=== PATIENT | female | born 1940 | race African-American/Black ===

== ENCOUNTER 2017-05-11 12:47 | Emergency (ER) | payer MEDICARE, OTHER ==
[~2017-05-11] VITALS: Ht 149.9 cm; Wt 52.0 kg
[~2017-05-11 12:47] MED LIST: ADVAIR; PREDNISONE
[2017-05-11 15:46] LABS: CHLORIDE 104 mEq/L (98-107)
[2017-05-11 15:48] LABS: BASOPHILS % 0.3 % (0.0-2.0); EOSINOPHILS % 0.1 % (0.0-5.0); HEMATOCRIT. 40.2 % (36.0-48.0); HEMOGLOBIN. 13.2 g/dL (12.0-16.0); LYMPHOCYTES % 10.1 % (20.0-50.0); MEAN CORPUSCULAR HEMOGLOBIN 31.6 pg (28.0-32.0); MEAN CORPUSCULAR VOLUME 96.3 fL (81.0-99.0); MEAN PLATELET VOLUME 7.4 fl (7.4-10.4); NEUTROPHILS % 85.5 % (40.0-76.0); PLATELET 337 x1000/uL (130-400); RED BLOOD CELL COUNT 4.17 mill/uL (4.2-5.4); RED CELL DISTRIBUTION WIDTH 15.9 % (11.6-14.6)
[2017-05-11 15:49] LABS: CARBON DIOXIDE 31 mEq/L (21-32); INR 1.1; PROTHROMBIN TIME 11.5 sec (9.4-11.6)
[2017-05-11 15:56] LABS: TROPONIN I < 0.02 ng/mL (0.00-0.04)
[2017-05-11 16:58] VITALS: BP 124/68
[2017-05-11] MEDS ORDERED: PREDNISONE 20MG TABLET PO ONE (17:15)
== END 2017-05-11 18:01 | disposition home or self-care (01) ==
LOC: ER 12:47
DX: R05 Cough (principal); J44.9 Chronic obstructive pulmonary disease, unspecified
CPT/HCPCS: 36415; 71045; 80053; 83880; 84484; 85025; 85610; 87804; 93005; 99285; J7512

== ENCOUNTER 2017-06-27 01:08 | Inpatient (IN) | payer MEDICARE, OTHER ==
[~2017-06-27] VITALS: Ht 160 cm; Wt 53.8 kg
[2017-06-27] VITALS (9 sets, daily range): BP systolic 99–168; BP diastolic 30–80
[2017-06-27] MEDS ORDERED: METHYLPREDNISOLONE SOD SUCC 125 MG/2 ML VIAL IV STA (01:18)
[2017-06-27] MEDS ORDERED: IPRATROPIUM BROMIDE (0.02%) 0.5MG/2.5ML NEB HHN STA (01:18)
[2017-06-27 01:43] LABS: BG BASE EXCESS 4.7 mmol/L (-2.0-2.0); BG BILEVEL POS AIRWAY PRESSURE 15/5; BG CARBOXYHEMOGLOBIN 0.4 % (0.5-1.5); BG DEOXYHEMOGLOBIN 0.8 % (0.0-5.0); BG FRACTION INSPIRED OXYGEN 40; BG HCO3 ACT 28.8 mmol/L (22.0-26.0); BG METHEMOGLOBIN 0.4 % (0.0-1.5); BG OXYGEN SATURATION 99.2 % (92.0-98.5); BG OXYHEMOGLOBIN 98.4 % (94.0-97.0); BG PCO2 40.9 mmHg (35.0-45.0); BG PH 7.466 (7.350-7.450); BG PO2 183.9 mmHg (75.0-100.0); BG SAMPLE SITE RIGHT RADIAL; BG TOTAL HEMOGLOBIN 13.4 g/dL (12.0-18.0); BG VENT MODE MASK - BIPAP
[2017-06-27 01:44] LABS: BASOPHILS % 0.1 % (0.0-2.0); EOSINOPHILS % 0.4 % (0.0-5.0); HEMATOCRIT. 39.5 % (36.0-48.0); HEMOGLOBIN. 12.6 g/dL (12.0-16.0); LYMPHOCYTES % 16.3 % (20.0-50.0); MEAN CORPUSCULAR HEMOGLOBIN 30.5 pg (28.0-32.0); MEAN CORPUSCULAR VOLUME 95.7 fL (81.0-99.0); MEAN PLATELET VOLUME 7.6 fl (7.4-10.4); MONOCYTES % 6.1 % (2.0-8.0); NEUTROPHILS % 77.1 % (40.0-76.0); PLATELET 259 x1000/uL (130-400); RED BLOOD CELL COUNT 4.13 mill/uL (4.2-5.4); RED CELL DISTRIBUTION WIDTH 16.1 % (11.6-14.6)
[2017-06-27 02:02] LABS: CHLORIDE 104 mEq/L (98-107)
[2017-06-27 02:03] LABS: TROPONIN I < 0.02 ng/mL (0.00-0.04)
[2017-06-27] MEDS ORDERED: IPRATROPIUM/ALBUTEROL 0.5-3(2.5)MG/3ML NEB ONE (02:08)
[2017-06-27] MEDS: ALBUTEROL (0.083%) 2.5MG/3ML NEB HHN SCH ×2 (02:45→03:45)
[2017-06-27] MEDS ORDERED: SODIUM CHLORIDE 0.9% 1,000 ML IV SCH (03:35)
[2017-06-27] MEDS ORDERED: IPRATROPIUM/ALBUTEROL 0.5-3(2.5)MG/3ML NEB HHN PRN (08:30)
[2017-06-27] MEDS ORDERED: ONDANSETRON HCL 4MG/2ML VIAL IV PRN (08:45)
[2017-06-27 09:14] LABS: T4 FREE 0.75 ng/dL (0.76-1.46)
[2017-06-27] MEDS ORDERED: P20 PO (10:45)
[2017-06-27] MEDS ORDERED: MIRT-91 PO (10:45)
[2017-06-27] MEDS ORDERED: MONT10TA21 PO (10:45)
[2017-06-27] MEDS: ENOXAPARIN 40MG/0.4ML SYR SUBCUT SCH (10:55)
[2017-06-27] MEDS: LEVOFLOXACIN 500MG PREMIX 100 ML IV SCH (10:56)
[2017-06-27] MEDS ORDERED: IPRATROPIUM/ALBUTEROL 0.5-3(2.5)MG/3ML NEB HHN SCH (12:00)
[2017-06-27] MEDS: IPRATROPIUM/ALBUTEROL 0.5-3(2.5)MG/3ML NEB HHN SCH ×3 (12:04→20:17)
[2017-06-27] MEDS: METHYLPREDNISOLONE SOD SUCC 40 MG/ML VIAL IV SCH ×2 (14:24→23:07)
[2017-06-27] MEDS: LEVOTHYROXINE SODIUM 25MCG TABLET PO SCH (17:18)
[2017-06-27] MEDS: MONTELUKAST SODIUM 10MG TABLET PO SCH (17:18)
[2017-06-27] MEDS ORDERED: IOHEXOL-350 100 ML BOTTLE ONE (22:27)
[2017-06-27] MEDS: MIRTAZAPINE 30MG TABLET PO SCH (23:07)
[2017-06-28] VITALS (18 sets, daily range): BP systolic 87–132; BP diastolic 25–67
[2017-06-28] MEDS: IPRATROPIUM/ALBUTEROL 0.5-3(2.5)MG/3ML NEB HHN SCH ×6 (00:08→20:00)
[2017-06-28] MEDS: METHYLPREDNISOLONE SOD SUCC 40 MG/ML VIAL IV SCH ×3 (05:03→22:46)
[2017-06-28 07:06] LABS: BASOPHILS % 0.1 % (0.0-2.0); HEMATOCRIT. 37.2 % (36.0-48.0); LYMPHOCYTES % 7.6 % (20.0-50.0); MEAN CORPUSCULAR HEMOGLOBIN 31.1 pg (28.0-32.0); MEAN CORPUSCULAR VOLUME 96.3 fL (81.0-99.0); MONOCYTES % 4.2 % (2.0-8.0); NEUTROPHILS % 88.1 % (40.0-76.0); PLATELET 233 x1000/uL (130-400); RED BLOOD CELL COUNT 3.87 mill/uL (4.2-5.4); RED CELL DISTRIBUTION WIDTH 16.8 % (11.6-14.6)
[2017-06-28 08:08] LABS: CHLORIDE 105 mEq/L (98-107)
[2017-06-28] MEDS: LEVOTHYROXINE SODIUM 25MCG TABLET PO SCH (09:02)
[2017-06-28] MEDS: ENOXAPARIN 40MG/0.4ML SYR SUBCUT SCH (09:03)
[2017-06-28] MEDS: LEVOFLOXACIN 500MG PREMIX 100 ML IV SCH (11:42)
[2017-06-28] MEDS: HYDROCODONE/ACETAMINOPHEN 5/325MG TABLET PO PRN (15:47)
[2017-06-28] MEDS: MONTELUKAST SODIUM 10MG TABLET PO SCH (18:07)
[2017-06-28] MEDS: MIRTAZAPINE 30MG TABLET PO SCH (22:46)
[2017-06-29] VITALS (13 sets, daily range): BP systolic 92–137; BP diastolic 30–72
[2017-06-29] MEDS: IPRATROPIUM/ALBUTEROL 0.5-3(2.5)MG/3ML NEB HHN SCH ×7 (00:18→20:46)
[2017-06-29] MEDS: LEVOTHYROXINE SODIUM 25MCG TABLET PO SCH (10:38)
[2017-06-29] MEDS: METHYLPREDNISOLONE SOD SUCC 40 MG/ML VIAL IV SCH ×3 (10:38→22:25)
[2017-06-29] MEDS ORDERED: GENTAMICIN/NS IRRIGATION 500 ML IR ONE (11:22)
[2017-06-29] MEDS ORDERED: GENTAMICIN SULF 40MG/ML 2ML VIAL ONE (11:22)
[2017-06-29] MEDS ORDERED: LIDOCAINE HCL/PF 1% 10 MG/ML 5ML VIAL ONE ×2 (11:57→12:26)
[2017-06-29] MEDS ORDERED: IOHEXOL-300 100 ML BOTTLE ONE (11:58)
[2017-06-29] MEDS ORDERED: ONDANSETRON HCL 4MG/2ML VIAL IV PRN (12:00)
[2017-06-29] MEDS ORDERED: ETOMIDATE 2MG/ML 10ML VIAL IV ONE (12:26)
[2017-06-29] MEDS ORDERED: CEFAZOLIN SODIUM 1000MG/VIAL ONE (12:26)
[2017-06-29] MEDS ORDERED: HYDROCODONE/ACETAMINOPHEN 5/325MG TABLET PO PRN (14:15)
[2017-06-29] MEDS: MONTELUKAST SODIUM 10MG TABLET PO SCH (16:47)
[2017-06-29] MEDS: MIRTAZAPINE 30MG TABLET PO SCH (20:43)
[2017-06-29] MEDS: CEFAZOLIN 1000MG PREMIX 50 ML IV SCH (20:54)
[2017-06-29] MEDS: HYDROCODONE/ACETAMINOPHEN 5/325MG TABLET PO PRN (22:43)
[2017-06-30] VITALS (18 sets, daily range): BP systolic 92–152; BP diastolic 54–89
[2017-06-30] MEDS: IPRATROPIUM/ALBUTEROL 0.5-3(2.5)MG/3ML NEB HHN SCH ×7 (00:22→20:47)
[2017-06-30] MEDS: CEFAZOLIN 1000MG PREMIX 50 ML IV SCH (04:08)
[2017-06-30 06:32] LABS: HEMATOCRIT. 39.2 % (36.0-48.0); HEMOGLOBIN. 12.7 g/dL (12.0-16.0); MEAN CORPUSCULAR HEMOGLOBIN 31.3 pg (28.0-32.0); MEAN CORPUSCULAR VOLUME 96.5 fL (81.0-99.0); MEAN PLATELET VOLUME 7.9 fl (7.4-10.4); PLATELET 217 x1000/uL (130-400); RED BLOOD CELL COUNT 4.06 mill/uL (4.2-5.4); RED CELL DISTRIBUTION WIDTH 16.2 % (11.6-14.6)
[2017-06-30] MEDS: METHYLPREDNISOLONE SOD SUCC 40 MG/ML VIAL IV SCH ×3 (06:42→22:02)
[2017-06-30] MEDS: LEVOTHYROXINE SODIUM 25MCG TABLET PO SCH (06:42)
[2017-06-30 07:07] LABS: CHLORIDE 101 mEq/L (98-107)
[2017-06-30 10:20] LABS: PLATELET ESTIMATE NORMAL
[2017-06-30] MEDS ORDERED: LEVOFLOXACIN 500MG PREMIX 100 ML IV SCH (11:00)
[2017-06-30] MEDS: MONTELUKAST SODIUM 10MG TABLET PO SCH (18:31)
[2017-06-30] MEDS: MIRTAZAPINE 30MG TABLET PO SCH (20:32)
[2017-07-01] VITALS (14 sets, daily range): BP systolic 92–122; BP diastolic 56–95
[2017-07-01] MEDS: IPRATROPIUM/ALBUTEROL 0.5-3(2.5)MG/3ML NEB HHN SCH ×6 (00:34→20:49)
[2017-07-01] MEDS: METHYLPREDNISOLONE SOD SUCC 40 MG/ML VIAL IV SCH ×3 (06:59→21:32)
[2017-07-01] MEDS: LEVOTHYROXINE SODIUM 25MCG TABLET PO SCH (06:59)
[2017-07-01 08:16] LABS: BG BASE EXCESS 5.2 mmol/L (-2.0-2.0); BG CARBOXYHEMOGLOBIN 0.6 % (0.5-1.5); BG DEOXYHEMOGLOBIN 6.2 % (0.0-5.0); BG FRACTION INSPIRED OXYGEN 21; BG HCO3 ACT 29.4 mmol/L (22.0-26.0); BG METHEMOGLOBIN 0.3 % (0.0-1.5); BG OXYGEN SATURATION 93.7 % (92.0-98.5); BG OXYHEMOGLOBIN 92.9 % (94.0-97.0); BG PCO2 41.4 mmHg (35.0-45.0); BG PH 7.469 (7.350-7.450); BG PO2 67.6 mmHg (75.0-100.0); BG SAMPLE SITE LEFT RADIAL; BG TOTAL HEMOGLOBIN 13.7 g/dL (12.0-18.0); BG VENT MODE ROOM AIR
[2017-07-01] MEDS: MONTELUKAST SODIUM 10MG TABLET PO SCH (19:20)
[2017-07-01 19:48] LABS: BG BASE EXCESS 6.2 mmol/L (-2.0-2.0); BG CARBOXYHEMOGLOBIN 0.5 % (0.5-1.5); BG DEOXYHEMOGLOBIN 11.3 % (0.0-5.0); BG FRACTION INSPIRED OXYGEN 21; BG METHEMOGLOBIN 0.3 % (0.0-1.5); BG OXYGEN SATURATION 88.6 % (92.0-98.5); BG OXYHEMOGLOBIN 87.9 % (94.0-97.0); BG PCO2 45.2 mmHg (35.0-45.0); BG PH 7.454 (7.350-7.450); BG PO2 53.7 mmHg (75.0-100.0); BG SAMPLE SITE RIGHT RADIAL; BG TOTAL HEMOGLOBIN 14.4 g/dL (12.0-18.0); BG VENT MODE BNCPAP
[2017-07-01] MEDS: MIRTAZAPINE 30MG TABLET PO SCH (21:32)
[2017-07-02] VITALS (11 sets, daily range): BP systolic 95–128; BP diastolic 57–88
[2017-07-02] MEDS: IPRATROPIUM/ALBUTEROL 0.5-3(2.5)MG/3ML NEB HHN SCH ×5 (00:43→17:17)
[2017-07-02] MEDS: HYDROCODONE/ACETAMINOPHEN 5/325MG TABLET PO PRN (01:19)
[2017-07-02] MEDS: METHYLPREDNISOLONE SOD SUCC 40 MG/ML VIAL IV SCH ×2 (06:33→14:40)
[2017-07-02] MEDS: LEVOTHYROXINE SODIUM 25MCG TABLET PO SCH (06:33)
[2017-07-02] MEDS ORDERED: LEVOFLOXACIN 250MG TABLET PO SCH (11:00)
[2017-07-02] MEDS: MONTELUKAST SODIUM 10MG TABLET PO SCH (16:53)
== END 2017-07-02 19:40 | disposition home or self-care (01) | DRG 242 ==
LOC: ER 01:08 → 5EST 03:36 → EDBEDREQSVC 06:27 → EDBEDREQTM 06:27 → EDBEDREQ 06:27 → ENRESERV 07:34 → 3WST 06-29 16:30
PROVIDERS: ADMIT Internal Medicine; ATTEND Internal Medicine
PROC: 5A09357 Assistance with Respiratory Ventilation, Less than 24 Consecutive Hours, Continuous Positive Airway Pressure (ICD-10-PCS; 2017-06-27)
PROC: 5A09357 Assistance with Respiratory Ventilation, Less than 24 Consecutive Hours, Continuous Positive Airway Pressure (ICD-10-PCS; 2017-06-28)
PROC: 0JH606Z Insertion of Pacemaker, Dual Chamber into Chest Subcutaneous Tissue and Fascia, Open Approach (ICD-10-PCS; principal; 2017-06-30)
PROC: 02H63JZ Insertion of Pacemaker Lead into Right Atrium, Percutaneous Approach (ICD-10-PCS; 2017-06-30)
PROC: 02HK3JZ Insertion of Pacemaker Lead into Right Ventricle, Percutaneous Approach (ICD-10-PCS; 2017-06-30)
PROC: B5171ZZ Fluoroscopy of Left Subclavian Vein using Low Osmolar Contrast (ICD-10-PCS; 2017-06-30)
DX: I44.1 Atrioventricular block, second degree (principal); J96.90 Respiratory failure, unspecified, unspecified whether with hypoxia or hypercapnia; J44.1 Chronic obstructive pulmonary disease with (acute) exacerbation; E78.5 Hyperlipidemia, unspecified; I10 Essential (primary) hypertension; R55 Syncope and collapse; Z80.3 Family history of malignant neoplasm of breast; Z82.49 Family history of ischemic heart disease and other diseases of the circulatory system; Z87.891 Personal history of nicotine dependence; Z83.3 Family history of diabetes mellitus
CPT/HCPCS: 33208; 36415; 36600; 71045; 71275; 75820; 80048; 80053; 82375; 82805; 82962; 83605; 83880; 84439; 84443; 84484; 85025; 85379; 87040; 87070; 87804; 93005; 94640; 94660; 96374; 99291; C1785; C1892; C1893; C1898; J0690; J1580; J1650; J1956; J2920; J2930; J3490; J7030; J7050; J7611; J7620; Q9967

== ENCOUNTER 2017-07-18 11:08 | Observation (INO) | payer MEDICARE, OTHER ==
[~2017-07-18] VITALS: Ht 149.9 cm; Wt 50.8 kg
[~2017-07-18 11:08] MED LIST changes: +MIRT-91 PO; +MONT10TA21 PO; -PREDNISONE
[2017-07-18] MEDS ORDERED: P20 PO (12:04)
[2017-07-18] MEDS ORDERED: TRAM50TA3 PO (12:06)
[2017-07-18] MEDS ORDERED: ASPIRIN 81MG TABLET PO STA (13:24)
[2017-07-18] MEDS ORDERED: NITROGLYCERIN 0.4MG TABLET SL SL PRN (13:30)
[2017-07-18 14:21] LABS: INR 1.1; PARTIAL THROMBOPLASTIN TIME 23.9 sec (23.4-31.0); PROTHROMBIN TIME 11.2 sec (9.4-11.6)
[2017-07-18 14:23] LABS: CHLORIDE 106 mEq/L (98-107)
[2017-07-18 14:42] LABS: HEMATOCRIT. 37.8 % (36.0-48.0); HEMOGLOBIN. 12.6 g/dL (12.0-16.0); MEAN CORPUSCULAR HEMOGLOBIN 31.8 pg (28.0-32.0); MEAN CORPUSCULAR VOLUME 95.2 fL (81.0-99.0); MEAN PLATELET VOLUME 7.8 fl (7.4-10.4); PLATELET 214 x1000/uL (130-400); RED BLOOD CELL COUNT 3.97 mill/uL (4.2-5.4); RED CELL DISTRIBUTION WIDTH 16.2 % (11.6-14.6)
[2017-07-18 15:00] LABS: PLATELET ESTIMATE NORMAL
[2017-07-18] MEDS ORDERED: SODIUM CHLORIDE 0.9% 250 ML IV ONE (15:00)
[2017-07-18] MEDS ORDERED: IOHEXOL-350 100 ML BOTTLE ONE (19:43)
[2017-07-18 21:26] VITALS: BP 107/68
[2017-07-18 21:50] VITALS: BP 107/68
[2017-07-18] MEDS ORDERED: TRAMADOL 50MG TABLET PO PRN (23:15)
[2017-07-18] MEDS: MIRTAZAPINE 30MG TABLET PO SCH (23:39)
[2017-07-18] MEDS: MONTELUKAST SODIUM 10MG TABLET PO SCH (23:39)
[2017-07-18] MEDS: METHYLPREDNISOLONE SOD SUCC 40 MG/ML VIAL IV SCH (23:49)
[2017-07-19] VITALS: BP 97/50
[2017-07-19] MEDS: IPRATROPIUM/ALBUTEROL 0.5-3(2.5)MG/3ML NEB HHN SCH ×3 (00:51→16:50)
[2017-07-19 01:16] LABS: CREATINE KINASE 39 IU/L (26-192); CREATINE KINASE MB FRACTION 1.5 ng/mL (0.5-3.6)
[2017-07-19 04:00] VITALS: BP 106/54
[2017-07-19] MEDS ORDERED: PANTOPRAZOLE 40MG DR TABLET PO SCH (07:10)
[2017-07-19 07:40] VITALS: BP 101/61
[2017-07-19] MEDS: METHYLPREDNISOLONE SOD SUCC 40 MG/ML VIAL IV SCH ×2 (08:10→20:15)
[2017-07-19] MEDS ORDERED: ENOXAPARIN 40MG/0.4ML SYR SUBCUT SCH (09:00)
[2017-07-19] MEDS ORDERED: ASPIRIN 81MG TABLET PO SCH (09:00)
[2017-07-19 09:12] LABS: CREATINE KINASE 41 IU/L (26-192); CREATINE KINASE MB FRACTION 1.8 ng/mL (0.5-3.6)
[2017-07-19 12:00] VITALS: BP 98/67
[2017-07-19 16:00] VITALS: BP 94/56
[2017-07-19 17:50] LABS: CREATINE KINASE 37 IU/L (26-192); CREATINE KINASE MB FRACTION 1.8 ng/mL (0.5-3.6)
[2017-07-19 18:13] VITALS: BP 94/56
[2017-07-19] MEDS: MIRTAZAPINE 30MG TABLET PO SCH (20:14)
[2017-07-19] MEDS: MONTELUKAST SODIUM 10MG TABLET PO SCH (20:14)
[2017-07-19] MEDS ORDERED: MIRTAZAPINE 30MG TABLET PO SCH (21:00)
[2017-07-19] MEDS ORDERED: MONTELUKAST SODIUM 10MG TABLET PO SCH (21:00)
== END 2017-07-19 20:56 | disposition home or self-care (01) ==
LOC: ER 12:26 → INTOOBSV 17:15 → 8WST 17:15 → EDBEDREQTM 17:17 → EDBEDREQ 17:17 → ENRESERV 19:50
PROVIDERS: ADMIT Internal Medicine; ATTEND Internal Medicine
DX: R07.2 Precordial pain (principal); J44.1 Chronic obstructive pulmonary disease with (acute) exacerbation; J96.00 Acute respiratory failure, unspecified whether with hypoxia or hypercapnia; J98.11 Atelectasis; I10 Essential (primary) hypertension; D68.9 Coagulation defect, unspecified; F41.9 Anxiety disorder, unspecified; E46 Unspecified protein-calorie malnutrition; Z79.899 Other long term (current) drug therapy; Z95.0 Presence of cardiac pacemaker; Z87.891 Personal history of nicotine dependence
CPT/HCPCS: 36415; 71045; 71275; 80053; 82550; 82553; 83690; 83880; 84484; 85025; 85610; 85730; 93005; 94640; 96361; 96372; 96374; 96376; 99285; G0378; J1650; J2920; J7620; Q9967; 96360